=== PATIENT | male | born 1990 | race Caucasian/White ===

== ENCOUNTER 2020-06-14 06:03 | Observation (INO) | payer BC, SELFPAY ==
[2020-06-14] VITALS (9 sets, daily range): BP systolic 110–163; BP diastolic 56–106; PULSE 52–78; RESP 14–22; TEMP 36.5–36.9; O2SAT 89–100; BMI 34.0
--- NOTE | ~2020-06-14 | CT_ITS ---
EXAMINATION: CT abdomen pelvis w con INDICATION: Lower abdominal pain and history of diverticulitis TECHNIQUE: Computed tomographic images of the abdomen and pelvis were obtained after the administrati on of 100 cc of Omnipaque 350 intravenous contrast. The dose-length product (DLP) was 1229.55 mGy-cm. Automated exposure control and iterative reconstruction technique were employed. COMPARISON: 06/23/2019, 09/14/2015 FINDINGS: A stable 8 mm nodule of the right lower lobe is consistent with old granulomatous disease. The lung bases are otherwise clear. The heart size is normal. The liver, spleen, pancreas, gallbladde r, and adrenal glands are normal. There is a 2 mm stone at the right ureterovesicular junction which causes moderate right hydroureteronephrosis. There is decreased perfusion of the right kidney compare d to the left. A moderate amount of right perinephric fat stranding is noted. The left kidney is unre markable. Path No pathologically enlarged abdominal or pelvic lymph nodes are identified. There is no free intraperitoneal gas or evidence of bowel obstruction. There is mild lumbar spondylosis. IMPRESSION: 1. 2 mm stone at the right ureterovesicular junction causing moderate hydroureteronephrosis with poss ible superimposed pyelonephritis. Reviewed, dictated and finalized at location B. IMPRESSION: 1. 2 mm stone at the right ureterovesicular junction causing moderate hydrouret eronephrosis with possible superimposed pyelonephritis.
--- NOTE | 2020-06-14 07:17 | PC.NURSE ---
assumed pt care at this time from rn Cat at bedside. Pt throwing up in sink with emesis bag in hand when rn's get report. I asked pt to sit on stretcher to get set of vitals, pt refused states I feel better crunched over like this. pt appears agitated, will not make eye contact with staff. requested nausea medication from erp festus
[2020-06-14 07:21] LABS: Basophils Percent Auto 0.2 % (0.2-1.2); Eosinophils Absolute Auto 0.1 K/mm3 (0-0.3); Eosinophils Percent Auto 0.6 % (0-4.4); Hematocrit 44.5 % (42.0-52.0); Hemoglobin 15.6 g/dL (14.0-18.0); Immature Granulocyte Percent A 0.6 % (0-0.5); Lymphocytes Absolute Auto 1.99 K/mm3 (0.9-3.2); Lymphocytes Percent Auto 11.7 % (18.3-44.2); Mean Corpuscular HGB Conc 35.1 g/dl (32-36); Mean Corpuscular Hemoglobin 30.3 pg (26-34); Mean Corpuscular Volume 86.4 fl (80-100); Mean Platelet Volume 9.5 fl (7.4-10.4); Monocytes Absolute Auto 1.7 K/mm3 (0.1-0.6); Monocytes Percent Auto 9.7 % (2.6-8.5); Neutrophils Absolute Auto 13.2 K/mm3 (1.3-6.7); Neutrophils Percent Auto 77.2 % (45.5-73.1); Platelet Count Result 249 k/mm3 (150-375); Red Blood Count 5.15 M/mm3 (4.6-6.20); White Blood Count 17.1 K/mm3 (4.5-10.0)
--- NOTE | 2020-06-14 07:23 | PC.NURSE ---
verbal order from erp festus for 4mg zofran ivp stat.
--- NOTE | 2020-06-14 07:24 | PC.NURSE ---
Report given to AARTI Keys.
[2020-06-14] MEDS: ONDANSETRON INJ 4 MG/2 ML VIAL IV PUSH (07:28)
--- NOTE | 2020-06-14 07:29 | PC.NURSE ---
While medicating pt per provider order, mother of pt complaining that they left their house at 0530 and nothing has changed in pt sx since they left, I apologized for the delay and explained that the ERP has been with another pt and would come see them chaitanya. Mother states I'm glad something is finally being given to the him for his sx. I again apologized for the wait, informed pt not to eat or drink anything, and reminded him that we do need a urine sample from him, states he will work on it, refusing cath.
[2020-06-14 07:33] LABS: Alanine Aminotransferase 52 U/L (4-50); Albumin Level 4.4 g/dL (3.5-5.1); Alkaline Phosphatase 55 U/L (38-126); Anion Gap 14.9 mmol/L (7-16); Aspartate Amino Transferase 45 U/L (17-59); Blood Urea Nitrogen 18 mg/dL (9-20); Calcium 9.6 mg/dL (8.4-10.2); Carbon Dioxide 20 mmol/L (22-30); Chloride 107 mmol/L (98-107); Estimated CRCL calculation 129 ml/min; Estimated Glomerular Filt Rate > 60; Glucose 125 mg/dL (75-110); Lipase 156 U/L (23-300); Potassium 3.9 mmol/L (3.4-5.0); Sodium 138 mmol/L (137-145)
[2020-06-14] MEDS: SODIUM CHLORIDE 0.9% IV 1,000 ML 999 ML IV CONT ×2 (07:34→10:38)
--- NOTE | 2020-06-14 07:34 | PC.NURSE ---
erp festus at bedside w/ pt for assessment.
--- NOTE | 2020-06-14 07:38 | ED.ABDPAIN ---
HPI - Abdominal Pain General Chief Complaint: Abdominal Pain Stated Complaint: DIVERTICULITIS FLARE UP Time Seen by Provider: 06/14/20 07:03 History of Present Illness HPI narrative: Patient presents with his mother for right lower abdominal pain for 1 day. He has history of diverticulitis. This episode is different because he has been vomiting. He last vomited 10 minutes ago. He gauges his pain at 9 out of 10. Also has loose stools which he says is from his Zoloft. He denies fever chills or sweats. He smokes cigarettes, drinks alcohol, and smokes marijuana. He has a history of right ankle surgery, circumcision. He takes Zoloft, multivitamin with minerals, and appetite suppressant. He works as a outside machinist helper. MD elicited complaint: abdominal pain Pertinent past history: diverticulitis Onset (ago): day(s) Pain Consistency: constant Location: RLQ Severity: severe Radiation: other (Periumbilical) Exacerbating factors: vomiting Relieving factors: nothing Associated symptoms: nausea, vomiting and diarrhea Related Data Allergies Allergy/AdvReac Type Severity Reaction Status Date / Time No Known Allergies Allergy Verified 06/14/20 06:18 Review of Systems Review of Systems: Narrative: CONSTITUTIONAL: Denies fever, chills, or sweats. EYES: Denies visual changes, redness, or discharge. ENT: Denies rhinorrhea, congestion, sore throat, or otalgia. CARDIOVASCULAR: Denies chest pain, palpitations, or edema. RESPIRATORY: Denies cough or dyspnea. GASTROINTESTINAL: He has abdominal pain, nausea, vomiting, and diarrhea. GENITOURINARY: Denies dysuria or hematuria. SKIN: Denies rash or itching. MUSCULOSKELETAL: Denies back pain, joint pain, or myalgia. NEUROLOGIC: Denies headache, numbness, or weakness. PSYCHIATRIC: He has depression. All systems reviewed & are unremarkable except as noted in HPI and below PMFSH Past Medical History Medical History Anxiety Diverticulitis Migraine Normal colonoscopy 10/10/19 colonoscopy, [place] Pneumonia Psoriasis Surgical History Surgical History History of ankle surgery Social History Social History (Updated 06/14/20 @ 07:43 by Kimi Fuller MD) Smoking status: Current every day smoker Alcohol intake: current Substance use: current Substance use type: marijuana Exam Narrative: Exam Narrative: GENERAL: Well-appearing, well-nourished, and in no acute distress. HEAD: Normocephalic, atraumatic. EYES: PERRLA and EOMI. ENT: Nares clear, no rhinorrhea or epistaxis. Mucous membranes moist. NECK: Supple. CHEST: Clear to auscultation. No respiratory distress. HEART: Regular rate and rhythm. No murmur heard. Normal peripheral pulses. ABDOMEN: Soft, nontender, nondistended, normal active bowel sounds. EXTREMITIES: Normal range of motion. No edema. SKIN: Warm, dry, no rash. Shaved hair on his back. NEURO: No focal deficits. Alert and oriented x3. PSYCH: Normal mood and affect. Course Reevaluation(s) Reevaluation #1: I went in to check on the patient and tell him that he has a kidney stone 2 mm. He is really surprised that a kidney stone can cause that much pain. It does not radiate into the groin. He still is nauseated and diaphoretic. We will continue to treat him with IV medication. Date: 06/14/20 Time: 08:57 Reevaluation #2: Reevaluation at 1010. The Dilaudid has really improved the patient's pain. His speech is a little slurred and he seems a little medicated. I explained the admission process to him that he will be here to help pass the stone without nausea and to keep the pain under control. Date: 06/14/20 Time: 10:13 Consultations Consultation #1: Call the urologist on-call, Dr. Servin, and he agrees to admit for observation for the young man to be able to pass his stone. Date: 06/14/20 Time: 10:11 Vital Signs Vital signs: Vital Signs Temperature 98.5 F 06/14/20
--- NOTE | 2020-06-14 07:50 | PC.NURSE ---
pt in ct at this time, will medicate when he returns per provider order.
[2020-06-14] MEDS: MORPHINE SULFATE 4 MG/ML INJ IV PUSH ×2 (07:54→08:57)
--- NOTE | 2020-06-14 08:00 | PC.NURSE ---
When entering to administer pain medication pt flopping around in bed and hyperventilating, I coached pt to slow his breathing to help with pain, states that his nausea is getting better.
--- NOTE | 2020-06-14 08:00 | PC.NURSE ---
pt reminded of need for ua, refusing cath, states he will attempt in a little bit.
--- NOTE | 2020-06-14 08:20 | PC.NURSE ---
pt now asleep on stretcher. rates pain at 2/10.
--- NOTE | 2020-06-14 08:55 | PC.NURSE ---
PT COMPLAINING OF INCREASING PAIN, ERP ROGER AWARE, VERBAL ORDER FOR 4MG MORPHINE IVP STAT. GIVEN BY MEDIC STUDENT FINA. PT REPORTS NAUSEA COMING BACK
[2020-06-14 08:56] LABS: Add Urine Microscopic? YES; Appearance Urine Clear (Clear); Bilirubin Urine Negative (Negative); Blood Urine Negative (Negative); Color Urine Yellow (Yellow); Glucose Urine UA Negative (Negative); Ketones Urine 1+ mg/dL (Negative); Leukocyte Esterase Ur Negative LEU/UL (Negative); Mucus Urine Rare /lpf; Nitrate Urine Negative (Negative); Protein Urine Negative (Negative); RBC Urine 0-2 /hpf (0-2); Urobilinogen Urine Negative mg/dL (<2.0); WBC Urine 0-3 /hpf
[2020-06-14 08:58] LABS: Specific Grav Ur 1.049 (1.001-1.035)
--- NOTE | 2020-06-14 09:07 | PC.NURSE ---
PT STILL COMPLAINING OF NAUSEA, ERP VERBAL ORDER FOR 10MG REGLAN IVP STAT.
[2020-06-14] MEDS: METOCLOPRAMIDE HCL INJ 10 MG/2 ML VIAL IV PUSH (09:18)
--- NOTE | 2020-06-14 09:35 | PC.NURSE ---
PT PLACED ON 2L VIA NC AT THIS TIME WHILE SLEEPING FOR O2 SATURATION 88%.
--- NOTE | 2020-06-14 10:58 | ADMGEN ---
This patient, Cesar Swanson, was admitted to 2 Medical Room 261-01. Patient/family oriented to hospital policies and general routines including ID bracelet, bed and alarms, visiting hours, pain management, procedures, bathroom and other care routines, personal items, smoking policy, room service/diet, and visiting hours. Valuables list has been completed. Information on how to activate the Rapid Response Team has been discussed. Patient/Family are encouraged to report perceived risks to care and to ask questions if they do not understand what they are told or what they should do.
[2020-06-14] MEDS: SODIUM CHLORIDE 0.9% IV 1,000 ML 125 ML IV CONT (11:41)
[2020-06-14] MEDS: MORPHINE SULFATE 2 MG/ML INJ IV PUSH (11:44)
--- NOTE | 2020-06-14 12:52 | PM.IMHP ---
H&P: HPI History of Present Illness Chief complaint: kidney stone with hydroureter and hydronephrosis Narrative: Cesar Swanson is a 29 year old male With a history of diverticulitis and no prior history of stone disease. He had acute onset right flank pain. This prompted a visit to the emergency room. He had significant nausea and vomiting. No blood in the urine no symptoms of urinary tract infection. He was diagnosed with a 2 mm right distal stone. He was admitted for management of the nausea vomiting. I evaluated the patient. He is now pain free. He is without nausea he is hungry. He like to be discharged home with a conservative trial of stone passage. Review of Systems Review of Systems: All systems reviewed & are unremarkable except as noted in HPI and below PMFSH Past Medical History Medical History (Updated 06/14/20 @ 12:55 by Benny Servin MD) Anxiety Diverticulitis Migraine Normal colonoscopy 10/10/19 colonoscopy, [place] Pneumonia Psoriasis Surgical History Surgical History History of ankle surgery Social History Social History (Updated 06/14/20 @ 07:43 by Kimi Fuller MD) Smoking packs per day: 0.5 Smoking cigarettes per day: 10.0 Years smoked: 15 Smoking pack-years: 7.50 Smoking status: Current every day smoker Tobacco type: cigarettes Alcohol intake: current Drinks per week: 15 Substance use: current Substance use type: marijuana Other substance usage details: 7 Last use: 06/13/2020 Spiritual care concerns: No Meds Home Medications and Allergies Home Medications Medication Instructions Recorded Confirmed Type Myovite 1 packet PO DAILY 06/14/20 06/14/20 History Synedrex 1 cap PO DAILY 06/14/20 06/14/20 History hydrocodone-acetaminophen [[place]] 1 tablet PO Q4H PRN #30 tablet 06/14/20 Rx sertraline 50 mg PO HS 06/14/20 06/14/20 History Allergies Allergy/AdvReac Type Severity Reaction Status Date / Time No Known Allergies Allergy Verified 06/14/20 12:18 Vital Signs Vital Signs - 24 hr 06/14/20 06:14 06/14/20 07:16 06/14/20 08:10 Temperature 98.5 F Pulse Rate 71 66 64 Respiratory Rate 18 22 H 16 Blood Pressure 158/98 H 163/106 H 152/104 H Pulse Oximetry 100 98 98 06/14/20 08:20 06/14/20 09:34 06/14/20 09:35 Temperature Pulse Rate 52 L 52 L Respiratory Rate 14 15 Blood Pressure 147/88 H 110/56 L Pulse Oximetry 95 89 L 96 06/14/20 10:30 06/14/20 10:44 06/14/20 11:04 Temperature 97.7 F Pulse Rate 54 L 78 64 Respiratory Rate 18 16 17 Blood Pressure 138/95 H 138/95 H 148/96 H Pulse Oximetry 99 98 99 Exam Const: General: comfortable and no acute distress HENMT: Mouth: Yes moist mucous membranes Eyes: General: appearance normal, both eyes and all related structures EOM: EOMs intact bilaterally Neck: Lymphatic: lymphadenopathy not noted Resp: Effort & Inspection: normal respiratory effort Cardio: Rate: regular rate Rhythm: regular rhythm GI: Inspection: non-distended GI Palp: Yes Soft to palpation and No Tenderness to palpation present (GI) Skin: General skin exam: normal color and no rashes or lesions noted Neuro: Speech: normal speech Motor exam (neuro): Normal motor muscle tone present throughout Extrem: General: normal to inspection Psych: Mental Status: mental status grossly normal H&P: Results Labs Labs: Short CBC 06/14/20 Range/Units 07:13 WBC 17.1 H (4.5-10.0) K/mm3 Hgb 15.6 (14.0-18.0) g/dL Hct 44.5 (42.0-52.0) % Plt Count 249 (150-375) k/mm3 [facility] 06/14/20 07:13 Sodium 138 Potassium 3.9 Chloride 107 Carbon Dioxide 20 L BUN 18 Creatinine 1.00 Glucose 125 H Calcium 9.6 Liver Function 06/14/20 Range/Units 07:13 Total Bilirubin 1.0 (0.2-1.3) mg/dL AST 45 (17-59) U/L ALT 52 H (4-50) U/L Alkaline Phosphatase 55 (38-126) U/L Albumin 4.4 (3.5-5.1) g/dL Urine
== END 2020-06-14 15:31 | disposition home or self-care (01) ==
LOC: ANHED 07:03 → ANH2MED 10:49
PROVIDERS: Emergency Medicine; Admitting Provider Urology; Emergency Provider Emergency Medicine; PCP Family Medicine; Visit Provider Urology
DX: N13.2 Hydronephrosis with renal and ureteral calculous obstruction (principal); F17.210 Nicotine dependence, cigarettes, uncomplicated
CPT/HCPCS: 36415; 74177; 80053; 81001; 83690; 85025; 96361; 96365; 96375; 96376; 99285; G0378; J1170; J2270; J2405; J2543; J2765; J7030; Q9967

== ENCOUNTER 2023-01-24 15:28 | Outpatient (CLI) | payer BC, SELFPAY ==
[2023-01-29 12:35] LABS: Kit Draw Collected
== END 2023-01-24 15:29 | disposition home or self-care (01) ==
LOC: ANHGOSHLAB 15:29
PROVIDERS: PCP Family Medicine; Visit Provider Family Medicine
DX: R55 Syncope and collapse (principal)
CPT/HCPCS: 36415

== ENCOUNTER → 2023-01-24 15:40 | Outpatient (CLI) | payer BC, SELFPAY ==
--- NOTE | ~2023-01-24 | XR_ITS ---
XR chest 2V DATE: 01/24/2023 15:48 INDICATION: Mid chest pain. Shortness of breath. TECHNIQUE: 2 views COMPARISON: 04/17/2018 two-view chest FINDINGS: Normal heart size. No hilar or mediastinal enlargement. No pulmonary infiltrate or consolid ation, pleural effusion or pulmonary vascular congestion or pneumothorax. Included skeletal structure s are unremarkable. IMPRESSION: Negative Reviewed, dictated and finalized at location B. GER DRUG IMPRESSION: Negative
== END ==
PROVIDERS: PCP Family Medicine; Visit Provider Family Medicine
DX: R06.02 Shortness of breath (principal)
CPT/HCPCS: 71046

== ENCOUNTER 2024-12-14 13:42 | Emergency (ER) | payer BC, SELFPAY ==
--- NOTE | ~2024-12-14 | CT_ITS ---
EXAMINATION: CT abdomen pelvis wo con DATE: 12/14/2024 17:34 INDICATION: LLQ pain, n/v TECHNIQUE: Computed tomography (CT) of the abdomen and pelvis was performed without intravenous contr ast. Automated exposure control and iterative reconstruction technique were employed. The dose-length product was 604.33 mGy-cm. COMPARISON: 06/14/2020 small uncomplicated fat-containing umbilical and left inguinal hernias. FINDINGS: Lower thorax: Stable right lower lobe granuloma. Liver: Normal. Biliary/Gallbladder: Gallbladder is normal. No bile duct dilation. Pancreas: No mass or duct dilation. Spleen: Normal. Adrenals:No mass. Kidneys: Normal right kidney. Mild left kidney perinephric stranding. Mild left hydronephrosis. No denney spicious mass. GI tract: No small or large bowel dilation. Normal appendix. Diverticulosis without diverticulitis. Mesentery/Peritoneum: No ascites, mass, or free air. Retroperitoneum: No mass. Pelvis: Mostly empty urinary bladder. 3 mm calcification at the left UVJ. Soft Tissues: Soft tissues and body wall unremarkable. Bones: No acute osseous finding. IMPRESSION: 3 mm stone at the left UVJ causing mild obstructive uropathy. Reviewed, dictated and finalized at location K. [employer]
[2024-12-14 14:00] VITALS: BP 175/109; PULSE 74; RESP 18; TEMP 36.4; O2SAT 98
--- OUTSIDE RECORDS SUMMARY | 2024-12-14 16:33 | XMS_ITS | Continuity of Care Document ---
Author Organization [facility] Address [address] [place] [address] [place] [address] Phone Care Team Providers Care Non Profit Job Titles Name Role Phone Jelani CORBETTDesmond Unavailable Unavailable Advance Directives Directive Yes / No Effective Date File Name No Information Encounters Encounter Description Practice Location Reason(s) For Visit Diagnoses Date Provider Providers Copied on Encounter [facility], [address], [place], [place], [id number], tel:[phone] [address] [facility] No Information [address] [address] [place], [address], . tel:[phone] Referring Provider: Shakir Rosario, [address] [facility], [place], [address]. tel:[phone] Family History Family Member Type Diagnosis Age At Onset No Information Payers Payer name Insurance type Covered republican ID Authoriza tion(s) No Information Social History Type Description Quantity Date Captured Comments Sex Male Smoking Status No Information Chief Complaint And Reason For Visit No Information Reason For Referral Reason For Referral No Information History Of Present Illness Encounter Date Complaint History Of Prese nt Illness No Information Functional Status Date Functional Assessmen t No Information Instructions Date Instruction Additional Infor mation No Information Assessments Type Assessment Date No Information Patient Care Teams Name Effective Dates (start - stop) Status Members No Information
[2024-12-14] MEDS: ONDANSETRON HCL ODT 4 MG TABLET PO (16:37)
[2024-12-14] MEDS: FAMOTIDINE 20 MG TABLET PO (16:37)
[2024-12-14] MEDS: KETOROLAC 30 MG/ML VIAL (*BKC) IM (16:49)
[2024-12-14] MEDS: MAG HYDROX/AL HYDROX/SIMETH 30 ML UDC PO (16:52)
[2024-12-14 16:53] VITALS: BP 145/71; PULSE 69; RESP 20; O2SAT 100
[2024-12-14 16:58] LABS: Add Urine Microscopic? YES; Appearance Urine Clear (Clear); Bacteria Urine None Seen /hpf; Bilirubin Urine Negative (Negative); Blood Urine Trace (Negative); Color Urine Yellow (Yellow); Glucose Urine UA Negative (Negative); Ketones Urine 1+ mg/dL (Negative); Leukocyte Esterase Ur Negative LEU/UL (Negative); Nitrate Urine Negative (Negative); Non Pathogenic Casts 0-2; Protein Urine 1+ mg/dL (Negative); RBC Urine 0-2 /hpf (0-2); Specific Grav Ur 1.027 (1.001-1.035); Squamous Epithelial Cell Urine None Seen /hpf (Few); Urobilinogen Urine 0.2 mg/dL (<2.0); WBC Urine 0-5 /hpf (0-3)
--- NOTE | 2024-12-14 17:39 | ED_ITS ---
HPI - Abdominal Pain General Chief Complaint: Abdominal Pain Stated Complaint: abd pain n/v Time Seen by Provider: 12/14/24 16:19 History of Present Illness HPI narrative: Patient states since this morning he has had n/v, and LLQ pain. Related Data Allergies Allergy/AdvReac Type Severity Reaction Status Date / Time No Known Allergies Allergy Verified 12/14/24 13:42 Review of Systems Review of Systems: All systems reviewed & are unremarkable except as noted in HPI and below PMFSH Past Medical History Medical History Anxiety Diverticulitis Hydronephrosis Low back strain Lower urinary tract symptoms (LUTS) 11/2019 normal bladder u/s. normal cystoscopy. normal prostate ( dr. cruz) Migraine Normal colonoscopy 10/10/19 colonoscopy, [place] Pneumonia Psoriasis Right distal ureteral calculus Surgical History Surgical History History of ankle surgery Family History Family History Father Hypertension Grandparent Cerebrovascular accident Family history of coronary artery disease Social History Social History Smoking packs per day: 0.5 Smoking cigarettes per day: 10.0 Years smoked: 15 Smoking pack-years: 7.50 Smoking status: Current every day smoker Tobacco type: cigarettes Alcohol intake: current Drinks per week: 10 Substance use: former Substance use type: does not use Other substance usage details: 7 Last use: 06/13/2020 Do You Feel Safe in your Home?: Yes Lack of Transportation: No Lack of Food: Sometimes True Current Housing: I Have Housing Concerned About Future Housing: No Difficulty Paying Gas/Electric Bills: YES Difficulty Paying for Meds: YES Currently Unemployed: No Education: Trade/Vocational Certificate Difficulty w/ Childcare or Family Care: No Spiritual care concerns: No Exam Narrative: EXAMINATION OF ORGAN SYSTEMS/BODY AREAS: Constitutional: Vital signs per nursing GENERAL: Curled up in bed, appears miserable HEAD: Normal with no signs of head trauma. EYES: EOMI, conjunctiva normal ENT: Hearing grossly intact LUNGS: Nonlabored breathing. HEART: [Regular rate and rhythm] ABD: [Soft], [nontender to palpation] EXT: Normal range of motion SKIN: [No rashes or lesions.] NEURO: [Alert and oriented x 3. No gross focal sensory or strength deficits.] PSYCH: Normal affect Course Vital Signs Vital signs: Vital Signs Temperature 97.6 F 12/14/24 14:00 Pulse Rate 74 12/14/24 14:00 Respiratory Rate 18 12/14/24 14:00 Blood Pressure 175/109 H 12/14/24 14:00 Pulse Oximetry 98 12/14/24 14:00 Oxygen Delivery Room Air 12/14/24 14:00 Temperature 97.6 F 12/14/24 14:00 Pulse Rate 69 12/14/24 16:53 Respiratory Rate 20 12/14/24 16:53 Blood Pressure 145/71 H 12/14/24 16:53 Pulse Oximetry 100 12/14/24 16:53 Oxygen Delivery Room Air 12/14/24 14:00 MDM - Abdominal Pain MDM Narrative Medical decision making narrative: ED COURSE AND MEDICAL DECISION MAKINM presenting to the emergency department for acute LLQ pain, symptoms are concerning for likely renal colic versus gastroenteritis. Urinalysis is ordered. [Toradol 15mg, Zofran 4mg] are ordered. CT scan of the abdomen/pelvis is ordered. Labs are remarkable for: Normal urinalysis. CT scan of the abdomen/pelvis is reviewed by myself and interpreted by radiology: 3 mm UVJ stone on the left. On reevaluation, the patient still having some pain but this is mostly resolved and he appears more comfortable. He is comfortable for outpatient management. Patient is strongly advised to return to the emergency department for any increasing pain not improving with medications, persistent nausea vomiting, fevers or chills or for any other concerns. Patient is comfortable with this plan and was discharged in fair condition. Going home with Toradol, Flomax Zofran, urology follow-up. Lab Data Labs: Lab Results 12/14/24 Range/Units 16:47 Urine Color Yellow (Yellow) Urine Appearance Clear (Clear) Urine pH 5.0 (5.0-9.0) Ur Specific [place] 1.027 (1.001-1.035) Urine Protein 1+ H (Negative) mg/dL Urine Glucose (UA) Negative (Negative) mg/dL Urine Ketones 1+ H (Negative) mg/dL Ur Blood (Man) Trace (Negative) Urine Nitrate Negative (Negative) Urine Bilirubin Negative (Negative) Urine Urobilinogen 0.2 (<2.0) mg/dL Leukocyte Esterase Rfl Negative (Negative) MARJORIE/UL Urine RBC 0-2 (0-2) /hpf Urine WBC 0-5 (0-3) /hpf Ur Squamous Epith Cells None seen (Few) /hpf Urine Bacteria None seen /hpf Urine Casts 0-2 Imaging Data Radiologist's impression: ITS Impressions Abdomen/Pelvis CT 12/14/24 17:47 IMPRESSION: 3 mm stone at the left UVJ causing mild obstructive uropathy. Discharge Plan Discharge Clinical Impression: Calculus of ureterovesical junction (UVJ) Patient Disposition: Home, Self-Care Condition: Stable Instructions: Kidney Stones (ED) Additional Instructions: Please follow-up with a urologist, take the medications as prescribed, and if your symptoms get worse, come back to the ER. Patient Language: Vietnamese Prescriptions: New ketorolac 10 mg tablet 10 mg PO Q6H PRN (Reason: pain) Qty: 20 0RF Rx Instructions: maximum total duration of 5 days from all oral, intranasal, or parenteral formulations ondansetron 4 mg tablet,disintegrating 4 mg PO Q8H PRN (Reason: nausea and vomiting) Qty: 10 0RF tamsulosin [Flomax] 0.4 mg capsule 0.4 mg PO DAILY Qty: 14 0RF No Action Zepbound 2.5 mg/0.5 mL pen injector 2.5 mg subcut WEEKLY Qty: 2 2RF Follow-up/Referrals: Duyen Mckoy MD [Primary Care Provider] - Uvaldo Jacques MD [Physician] - 2 Days
== END 2024-12-14 18:38 | disposition home or self-care (01) ==
PROVIDERS: Emergency Provider Emergency Medicine; PCP Family Medicine
DX: N13.9 Obstructive and reflux uropathy, unspecified (principal); N20.1 Calculus of ureter; L40.9 Psoriasis, unspecified; F17.210 Nicotine dependence, cigarettes, uncomplicated; Z87.01 Personal history of pneumonia (recurrent)
CPT/HCPCS: 74176; 81001; 96372; 99284; A9270; J1885